=== PATIENT | female | born 1975 | race Caucasian/White ===

== ENCOUNTER → 2023-06-17 06:19 | Day surgery (SDC) | payer OTHER, SELFPAY | LOC: GI 06:19 | PROVIDERS: ATTENDING PHYSICIAN Internal Medicine Gastroenterology | DX: Z12.11 Encounter for screening for malignant neoplasm of colon (principal); D12.2 Benign neoplasm of ascending colon; D12.5 Benign neoplasm of sigmoid colon; K57.30 Diverticulosis of large intestine without perforation or abscess without bleeding; K62.89 Other specified diseases of anus and rectum; K64.8 Other hemorrhoids | CPT/HCPCS: 45380; 88305 ==

== ENCOUNTER → 2023-07-11 13:52 | Outpatient (REF) | payer OTHER, SELFPAY | LOC: WDC 13:52 | PROVIDERS: ATTENDING PHYSICIAN Obstetrics & Gynecology; FAMILY PHYSICIAN Family Medicine | DX: R92.2 Inconclusive mammogram (principal) | CPT/HCPCS: 76641 ==

== ENCOUNTER → 2024-03-09 12:41 | Outpatient (REF) | payer OTHER, SELFPAY | LOC: WDC 12:41 | PROVIDERS: ATTENDING PHYSICIAN Family Medicine Geriatric Medicine; FAMILY PHYSICIAN Family Medicine | DX: Z12.31 Encounter for screening mammogram for malignant neoplasm of breast (principal); Z85.3 Personal history of malignant neoplasm of breast | CPT/HCPCS: 77063; 77067 ==

== ENCOUNTER → 2024-08-14 12:42 | Outpatient (REF) | payer OTHER, SELFPAY | LOC: WDC 12:42 | PROVIDERS: ATTENDING PHYSICIAN Family Medicine Geriatric Medicine; FAMILY PHYSICIAN Family Medicine | DX: R92.30 Dense breasts, unspecified (principal) | CPT/HCPCS: 76641 ==

== ENCOUNTER 2024-12-16 21:01 | Day surgery (SDC) | payer OTHER, SELFPAY ==
[2024-12-16] VITALS (8 sets, daily range): BP systolic 113–153; BP diastolic 69–102; BMI 28.3; BMI 28.4
[2024-12-16 13:52] LABS: Hematocrit 41.3 % (37.0-47.0); Hemoglobin 13.9 g/dL (12.0-16.0); Mean Corp Hgb Conc. 33.7 g/dL (33.0-37.0); Mean Corpuscular Volume 90.0 fL (81.0-99.0); Nucleated Red Blood Cells % 0 %; Platelet Count 270 10^3/uL (130-400); Red Cell Dist. Width 13.1 % (11.5-14.5)
[2024-12-16 14:04] LABS: ALT (SGPT) 18 U/L (0-35); AST (SGOT) 20 U/L (14-36); Albumin 4.4 g/dl (3.5-5.0); Alkaline Phosphatase 76 U/L (38-126); Blood Urea Nitrogen 13 mg/dl (7-17); Calcium 9.5 mg/dl (8.4-10.2); Carbon Dioxide 30 mmol/L (22-30); Chloride 103 mmol/L (98-107); Glucose 100 mg/dl (70-99); Potassium 3.9 mmol/L (3.5-5.1); Sodium 138 mmol/L (135-145); Total Protein 6.9 g/dl (6.3-8.2); eGFR > 60.00
[2024-12-16 14:15] LABS: Troponin I < 0.012 ng/ml
--- NOTE | 2024-12-16 15:51 | ED.GENMED ---
History of Present Illness
<KARINA Rodriguez - Last Filed: 12/16/24 19:55>
General
Chief Complaint: Chest Pain
Source: patient
Exam Limitations: none
Time Seen by Provider: 12/16/24 14:41
Nursing documentation reviewed up to this point in time: agreed with
History of Present Illness
History of Present Illness:
Patient is a 49-year female with past medical history of left-sided breast cancer /lumpectomy who presents with chest pain for the past 3 nights. She reports that started Saturday night. She felt that it might have been something she ate and
initially felt that it started in her upper abdomen and then radiated to her chest. She still feels a little discomfort in her chest throughout the day but reports for the past 2 nights she has had persistent upper abdominal/chest pain that has
kept her up throughout the night. She is not able to get comfortable. She denies any shortness of breath. Initial symptoms started after eating and she feels that pain seems to worsen after eating.
Past History
<KARINA Rodriguez - Last Filed: 12/16/24 19:55>
Past History
ED Past Medical History: None; Negative NIDDM
Social History
Personal:
Phy Exam
<KARINA Rodriguez - Last Filed: 12/16/24 19:55>
General Physical Exam
General Presentation: no apparent distress
General age: appears stated age
General Skin: warm and dry
General Habitus: normal
General Mental: alert
General Hydration: appears well hydrated
Cardiovascular Exam
Cardiovascular Exam: regular rate/rhythm, no murmur and normal peripheral pulses
Pulmonary Exam
Pulmonary Exam: lungs clear and no respiratory distress
Neurological Exam
Neurological Exam: alert and oriented x3
Musculoskeletal Exam
Musculoskeletal Exam: full ROM
Skin Exam
Skin Exam: normal color and warm/dry
Psychiatric Exam
Psychiatric Exam: normal mood/affect
Scores
<KARINA Rodriguez - Last Filed: 12/16/24 19:55>
Heart Score for Chest Pain Patients
STEMI patient?: Not applicable
Course
<KARINA Rodriguez - Last Filed: 12/16/24 19:55>
Orders/Labs/Results
Orders:
Orders
12/16/24 13:23
Electrocardiogram (*1) Urgent
Reason for Study: Chest Pain
12/16/24 13:24
EKG- Treatment ONCE
12/16/24 13:42
Complete Blood Count/With Diff Urgent
Comprehensive Metabolic Panel Urgent
Lipase Urgent
Comment: ADD ON
Troponin I Urgent
12/16/24 15:13
Chest [CR Chest - 2 Views ] Urgent
Comment:
Reason For Exam: cp
12/16/24 15:53
US Abdomen Complete/Upper Urgent
Comment:
Reason For Exam: upper abd pain
12/16/24 17:20
DDimer [D-Dimer] Urgent
12/16/24 19:53
0.9% Sodium Chloride 1000 ml [Nss] 1,000 ml IV BOLUS
Abnormal Lab Results
12/16/24
13:42
Glucose 100 H mg/dl
(70-99)
12/16/24 13:42
12/16/24 13:42
Vital Signs
Initial and Last Documented VS:
Initial Vital Signs
Temp Pulse Resp BP Pulse Ox
98.5 F 107 20 152/102 98
12/16/24 13:20 12/16/24 13:20 12/16/24 13:20 12/16/24 13:20 12/16/24 13:20
Last Documented Vital Signs
Temp Pulse Resp BP Pulse Ox
98 F 91 16 113/71 99
12/16/24 15:29 12/16/24 15:29 12/16/24 15:29 12/16/24 18:33 12/16/24 18:45
Physical Biochemist consulted with Physician
Physical Biochemist consulted with physician?: Yes
Name of Physician Consulted: DR Solis
<Emily Solis, DO - Last Filed: 12/16/24 19:56>
Orders/Labs/Results
Orders:
Orders
12/16/24 13:23
Electrocardiogram (*1) Urgent
Reason for Study: Chest Pain
12/16/24 13:24
EKG- Treatment ONCE
12/16/24 13:42
Complete Blood Count/With Diff Urgent
Comprehensive Metabolic Panel Urgent
Lipase Urgent
Comment: ADD ON
Troponin I Urgent
12/16/24 15:13
Chest [CR Chest - 2 Views ] Urgent
Comment:
Reason For Exam: cp
12/16/24 15:53
US Abdomen Complete/Upper Urgent
Comment:
Reason For Exam: upper abd pain
12/16/24 17:20
DDimer [D-Dimer] Urgent
12/16/24 19:53
0.9% Sodium Chloride 1000 ml [Nss] 1,000 ml IV BOLUS
Abnormal Lab Results
12/16/24
13:42
Glucose 100 H mg/dl
(70-99)
12/16/24 13:42
12/16/24 13:42
Vital Signs
Initial and Last Documented VS:
Initial Vital Signs
Temp Pulse Resp BP Pulse Ox
98.5 F 107 20 152/102 98
12/16/24 13:20 12/16/24 13:20 12/16/24 13:20 12/16/24 13:20 12/16/24 13:20
Last Documented Vital Signs
Temp Pulse Resp BP Pulse Ox
98 F 91 16 113/71 99
12/16/24 15:29 12/16/24 15:29 12/16/24 15:29 12/16/24 18:33 12/16/24 18:45
<KARINA Rodriguez - Last Filed: 12/16/24 19:55>
MDM/Problems Addressed
Differential Diagnosis Includes:
Not limited to gastritis, acute cholecystitis, less likely ACS less likely PE
MDM/Problems Addressed:
As documented patient is a 49 old female who presented with upper abdominal/chest pain for the past 3 nights. Started 3 days ago worse after eating. No cardiac history patient does have a history of breast cancer and is on estrogen blocking drugs
no shortness of breath D-dimer negative. Ultrasound shows large gallstone in gallbladder neck with diffuse gallbladder sludge and wall thickening suggestive of acute cholecystitis.
Patient afebrile normal white count normal LFTs Case discussed with surgery DR Ruiz who does recommend adm to hospitalist service. Case reviewed ED physician case reviewed with hospitalist on-call
Chronic conditions affecting care:
Breast cancer on estrogen blocking drugs
<KARINA Rodriguez - Last Filed: 12/16/24 19:55>
*Radiology
Radiology exam reviewed: radiology read reviewed
*Pulse Oximetry
SaO2: 99
Oxygen Mode of Delivery: Room air
Patient hypoxic: no
*Critical Care Note
Total Time (30-74mins, 75-104mins- exclusive of procedures): Not Applicable
<KARINA Rodriguez - Last Filed: 12/16/24 19:55>
Patient Management
Discussion with other providers: Baggage Handler (DR Ruiz surg )
ED Attending Note
<KARINA Rodriguez - Last Filed: 12/16/24 19:55>
-
Portions of this chart may have been created with voice recognition software.� Occasional wrong word or��sound alike� substitutions may have occurred due to the inherent limitations of voice recognition software.
<Emily Solis DO - Last Filed: 12/16/24 19:56>
ED Attending Note
Patient seen and examined by attending physician: Yes
I performed the substantive portion of visit, reviewed & personally made and approve the management plan that is documented in note by myself or JOSEPHINE.: Yes
I performed a history and physical exam of patient and discussed management with resident, I reviewed resident's note and agree with documented findings and plan of care.: Yes
ED Attending Note:
49-year-old female with prior history of breast cancer presenting to the emergency department for abdominal pain. Patient reports 3 days of abdominal pain, nausea, worse after eating. Denies fever. No prior history of abdominal surgeries. Vital
signs on arrival initially significant for high blood pressure which improved without intervention.
Patient initially seen by nurse practitioner with appropriate workup including laboratory analysis, and ultrasound imaging. Patient noted to have focal right upper quadrant pain. On my assessment, focal right upper quadrant pain, otherwise
nontoxic, benign cardiac and pulmonary exam. Workup is remarkable for acute cholecystitis. Case discussed with surgery, recommending admission for likely surgical management.
Discharge Plan
Departure
Patient Disposition: Admit
Date of Disposition: 12/16/24
Time of Disposition: 19:51
Admit to: Med/Surg
Admit to doctor: hospitalist
Presentation/result/management discussed w/ accepting MD/DO: Hospitalist
Patient with high blood pressure during this ER visit?: Yes
Condition: Fair
Covid-19: Not Applicable
Discharge Problem:
Acute cholecystitis
Prescriptions:
No Action
ascorbic acid (vitamin C) [Vitamin C] 1,000 MG tablet
1,000 mg PO DAILY
calcium carb-D3-mag ox-zinc ox [Iftikhar Mag Zinc Plus D3] 1 EACH tablet
1 ea PO DAILY
hydrocodone-acetaminophen 1 TABLET tablet
1 tab PO Q4HPRN PRN (Reason: pain >4/10) Qty: 20 0RF
Rx Instructions:
take with daily stool softener
Referrals:
Eduard Ruiz MD [Family Provider, Family Practice]
Interventions
Interventions:
*Risk Screen - Suicide Last Done: 12/16/24 13:20
*General Assessment Last Done: 12/16/24 13:20
*Neglect/Abuse Screening Last Done: 12/16/24 15:30
*ED- Fall Risk Assessment Last Done: 12/16/24 15:30
ED- Cardiac Assessment Last Done: 12/16/24 15:30
Discharge Date and Time
Print Language: TELUGU
[2024-12-16 16:26] LABS: Lipase 107 U/L (23-300)
[2024-12-16 17:38] LABS: D-Dimer 0.31 ug/mlFEU (0.00-0.50)
--- NOTE | 2024-12-16 20:00 | HPS.HSE ---
Addendum entered and electronically signed by Madison Lopez MD 12/16/24 21:06:
This is an addendum to H&P written by Lidya Nixon on 12/16/2024. �Patient seen and examined independently with ARTERIAL EMBALMER.
49-year-old female past medical history of left-sided breast cancer status post lumpectomy presenting with chest pain for the past 3 days. �Pain started in her upper abdomen and then radiated to her chest. �Denies shortness of breath. �Pain started
after eating and worse with eating.
Vital signs normal.
Labs unremarkable
Abdominal ultrasound shows large gallstone in gallbladder neck diffuse gallbladder sludge and wall thickening suggesting acute cholecystitis.
Patient without any symptoms currently. N.p.o., IV fluids,� general surgery recommended no antibiotic.�
Original Note:
Family Physician
-
Family Physician: Eduard Ruiz
Chief Complaint
-
upper abdominal and chest pain
History of Present Illness
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 Patient reports that Saturday evening
she started with diffuse abdominal pain, severe, cramping with associated episode of emesis. Then Saturday she began with chest heaviness that included upper abdomen with mild nausea. She believes symptoms worsened with eating and nothing really
improved symptoms. She denies fever, chills, cough, shortness of breath, constipation, diarrhea or urinary symptoms.
Medical History
Past Medical History
Past Medical History: Reports Other
Additional Past Medical History:
malignant neoplasm of upper-outer quadrant of left female breast
Past Surgical History: Reports Other
Additional Past Surgical History:
left breast bx dh 02/2020
left lumpectomy 03/2020
Social History
Tobacco: Non-smoker
Alcohol: Occasional
Drug: None
Personal: Partner
Living: With Family
Employment: Employed
Family History
Family History: Not pertinent
Allergies / Home Medications
Allergies reflects when Allergies were last updated in [employer].
Home Medications with original date entered in [employer]
Allergy/Medication List:
Allergies
Allergy/AdvReac Type Severity Reaction Status Date / Time
Sulfa (Sulfonamide Allergy Rash Verified 12/16/24 13:21
Antibiotics)
Home Medications
tamoxifen 20 mg tablet 20 mg PO DAILY 12/16/24
Review of Systems
-
History Source: Patient
Constitutional: Denies Fever, Weight Loss or Chills
EENT: Denies Sore Throat
Respiratory: Denies Cough or Trouble Breathing
Cardiac: Reports Chest Pain; Denies Diaphoresis, Palpitations or Syncope
Abdomen/GI: Reports Abdominal Pain, Nausea and Vomiting; Denies Diarrhea, Constipated or Anorexia
: Denies Dysuria, Frequency, Flank Pain, Difficulty Voiding or Urgency
Skin: Denies Rash
Neurological: Denies Dizzy, Headache, Weakness or Numbness
Endocrine: Denies Polyuria or Polydipsia
Physical Exam
Vital Signs
Vital Signs
Temp Pulse Resp BP Pulse Ox
98 F 91 16 113/71 99
12/16/24 15:29 12/16/24 15:29 12/16/24 15:29 12/16/24 18:33 12/16/24 18:45
Physical Exam
General: Well Developed, Well Nourished, No Apparent Distress, Comfortable, Conversant and Obese
HEENT: NormoCephalic, Moist mucous membranes, Atraumatic, Nose Appears Normal and Ears Appear Normal
Respiratory: Clear and Non Labored Respirations; No Wheezes, Rales, Rhonchi or Crackles
Cardiac: S1/S2 and Regular Rhythm; No Murmur, Rub, Gallop or Peripheral Edema
GI: Soft, Non Tender, Non Distended and Normal Bowel Sounds
Rectal: Deferred by Provider
Genito-urinary: Deferred by me
Musculoskeletal: No Clubbing, No Cyanosis and No Edema
Skin: Warm and IV/Catheter Site; No Rash
Neuro: Awake, AO x 3 and Nonfocal/grossly intact
Hematologic/Lymphatic: No Lymphadenopathy
Psych: Calm and Intact Judgment/Insight
Laboratory Results
-
12/16/24 13:42
12/16/24 13:42
Laboratory Results
Total Bilirubin 0.5 mg/dl (0.2-1.3) 12/16/24 13:42
AST 20 U/L (14-36) 12/16/24 13:42
ALT 18 U/L (0-35) 12/16/24 13:42
Alkaline Phosphatase 76 U/L (38-126) 12/16/24 13:42
Troponin I < 0.012 ng/ml 12/16/24 13:42
Lipase Cancelled 12/16/24 15:53
Data Reviewed
-
Diagnostic Radiology: Report Reviewed by me (CXR: Unremarkable exam)
Ultrasound: Report Reviewed by me (Abd: Large gallstone in gallbladder neck with diffuse gallbladder sludge and wall thickening suggesting acute cholecystitis. Clinical and laboratory correlation recommended. Nonvisualization of pancreas.)
Medical Tests (Nuc Med, Echo, EKG etc): Report Reviewed by me (EKG: NORMAL SINUS RHYTHM WITH SINUS ARRHYTHMIA)
Lab Data: Labs Reviewed by me
Impression/Plan
-
IMPRESSION/PLAN:
#upper abdominal pain/chest pain likely 2/2 acute cholecystitis
CXR: Unremarkable exam
Abd US: Large gallstone in gallbladder neck with diffuse gallbladder sludge and wall thickening suggesting acute cholecystitis. Clinical and laboratory correlation recommended.
Nonvisualization of pancreas.
EKG: NORMAL SINUS RHYTHM WITH SINUS ARRHYTHMIA
- Admit to med/surg
- Consult surgery
- hold on antibiotics per surgery
- NPO after midnight for potential surgical intervention
#malignant neoplasm of upper-outer quadrant of left female breast
Code status: full code
DVT prophylaxis: SCDs
[2024-12-16] MEDS: NSS 1000 IV (21:19)
--- NOTE | 2024-12-16 22:15 | PTCARENOTE ---
Pt arrived to the unit @2203. Vital signs stable. She came in with upper abdominal pain radiating to the chest. Abdominal ultrasound showed a gallstone with acute cholecystitis. Plan is for the OR in the am. Care ongoing.
[2024-12-17] VITALS (13 sets, daily range): BP systolic 98–136; BP diastolic 54–83
--- NOTE | 2024-12-17 10:21 | CM ---
Reviewed the chart notes and spoke with the patient at the bedside. Patient expects to go to OR today for lap danny. Patient resides with significant other and son in a two story home with one step to enter. The patient reports no DME or SNF, but
did have VN with ankle surgery. Patient thinks it was [facility]N. The patient confirmed her pharmacy of choice is [facility]. CM continues to be available to patient/family and is monitoring medical plan for needs at discharge.
Plan: Discharge plans will depend on the patient's progress.
--- NOTE | 2024-12-17 10:36 | W.PN.HOSP.TC ---
Today's Communication/Plan
-
Plan for cholecystectomy today
Assessment / Plan
Assessment / Plan
Physical exam:
General: Well Developed, Well Nourished and No Apparent Distress
HEENT: Normocephalic, Atraumatic and Moist Mucous Membranes
Respiratory: Clear to Auscultation; Negative Wheezes, Rales or Rhonchi
Cardiac: Regular Rhythm and S1/S2
GI: Soft, Nontender and Nondistended
Musculoskeletal: No Clubbing, No Cyanosis and No Edema
Neuro: Awake, Alert and Oriented, no deficits
Psych: Calm
A/P:
Symptomatic cholelithiasis versus acute cholecystitis:
Ultrasound of the gallbladder stone and wall thickening
N.p.o.
Surgery consult appreciated
Plan for OR today
History of breast cancer:
Outpatient surveillance
DVT prophylaxis:
Lovenox
CODE STATUS:
Full code
Time spent 35 minutes
Anticipated Discharge: Today
Subjective/Interval History
-
Date of Service: December 17, 2024
No abd pain, no fever
Objective Data
-
Vital Signs:
Vital Signs
Temp Pulse Resp BP Pulse Ox
97.8 F 69 16 136/83 100
12/17/24 07:25 12/17/24 07:25 12/17/24 07:25 12/17/24 07:25 12/17/24 07:25
I&O
12/16/24 12/17/24 12/18/24
06:59 06:59 06:59
Intake Total 700 / 700
Balance 700 / 700
--- NOTE | 2024-12-17 10:46 | CON.GS ---
Addendum entered and electronically signed by Tom Ortega MD 12/17/24 11:13:
Patient seen and examined with surgical RATER ASSOCIATE. Agree with documented consultation with additional details provided here.
HPI: 49-year-old female who has had a 4-day history of persistent right upper quadrant abdominal pain but intermittently exacerbated. Initial episode was more diffuse with nausea and vomiting. It has reoccurred over the past few days predominantly
in the evening and began localizing more towards the epigastrium and right upper quadrant. The nausea has persisted. The vomiting subsided. Similar episodes in the past but less severe so she did not seek evaluation.
AFVSS NAD AAO x 3
ABD: Soft, nondistended, tenderness palpation epigastrium and right upper quadrant. No rebound or guarding.
Ultrasound imaging personally reviewed and interpreted as well as radiologist report. Distended gallbladder, numerous stones/sludge. Wall is measured up to 5 mm in location suggestive of thickening. No biliary ductal dilation.
Laboratory testing reviewed and all within normal limits including LFTs, CBC and lipase
Assessment/plan: 49-year-old female presenting with acute biliary colic versus acute calculous cholecystitis and secondary intractable abdominal pain/nausea.
Reviewed with patient indications for cholecystectomy at hospitalization versus attempted nonoperative management. After discussions regarding risks and benefits patient in agreement to proceed with cholecystectomy.
Laparoscopic cholecystectomy with intraoperative cholangiogram was further reviewed in detail including the operative technique utilizing a diagram and drawing. We discussed alternative treatment options, benefits and risks such as but not limited
to bleeding, infectious and wound related complications, iatrogenic injury to surrounding viscera, bile duct injury, bile leak and postcholecystectomy bowel habit changes. Any of the patient's concerns or questions were fully addressed and informed
consent was obtained.
Patient is on the OR schedule for cholecystectomy today
Original Note:
Consultation
-
Date/Time Consultation Requested: 12/16/242213
Date/Time Consultation Performed: 12/17/24 0315
Requesting Provider: Hussain
Medical History
-
Chief Complaint: abdominal pain
History of Present Illness:
Ms Alvarado is a 49 yo female with a h/o breast cancer s/p lumpectomy on tamoxifen/zoladex who presented with upper abdominal pain which began 4 days ago (Saturday) around 10pm after having a pre-prepared [employer] meal for dinner. Pain eventually resolved
but has returned intermittently since, worse at night. Her initial episode of pain was diffuse and accompanied by nausea and vomiting with subsequent episodes more across the upper abdomen and accompanied by nausea without vomiting. She reports
similar episodes of this pain in the past intermittently but much less severe and shorter in duration. Yesterday, pain persisted and she presented through the ED for evaluation. Currently, symptoms have resolved and she has no tenderness on exam.
Past Medical History
Past Medical History: Cancer (breast tx surgically on tamoxifen/Zoladex)
Past Surgical History: Gynecological (LEEP), Orthopedic (ankle) and Other (left lumpectomy)
Social History
Tobacco: Non-Smoker
Alcohol: Occasional
Family History
Family History: Reviewed & Not Pertinent
Allergies / Home Medications
Allergy/AdvReac Type Severity Reaction Status Date / Time
Sulfa (Sulfonamide Allergy Rash Verified 12/16/24 13:21
Antibiotics)
�Medication �Instructions �Recorded �Confirmed �Type
tamoxifen 20 mg tablet 20 mg PO DAILY Cancer 12/16/24 12/16/24 History
Review of Systems
-
History Source: Patient
All other systems: Negative unless noted
A 10 point review of systems was completed, and was negative except as per HPI.
Physical Exam
Vital Signs
Temp Pulse Resp BP Pulse Ox
97.8 F 69 16 136/83 100
12/17/24 07:25 12/17/24 07:25 12/17/24 07:25 12/17/24 07:25 12/17/24 07:25
12/16/24 12/17/24 12/18/24
06:59 06:59 06:59
Actual Weight 82.27 kg
Body Mass Index (BMI) 28.4
Lab Results
12/16/24 13:42
12/16/24 13:42
WBC 7.0 10^3/uL (4.8-10.8) 12/16/24 13:42
Hgb 13.9 g/dL (12.0-16.0) 12/16/24 13:42
Hct 41.3 % (37.0-47.0) 12/16/24 13:42
Plt Count 270 10^3/uL (130-400) 12/16/24 13:42
Abs Immat Gran (auto) 0.0 10^3/uL (0-0.05) 12/16/24 13:42
Neutrophils % 68.9 % (42.2-75.2) 12/16/24 13:42
Physical Exam
General: Well Developed and Well Nourished
HEENT: Moist Mucous Membranes
Respiratory: Non Labored Respirations
GI: Soft, Non Tender and Non Distended
Skin: Warm and Dry
Neuro: Awake, Alert and AO x 3
Psych: Calm
Data Reviewed
-
Ultrasound: Image Personally Visualized and interpreted, Report Reviewed by me, Discussed with Physician and Discussed with Patient
Labs: Labs Reviewed by me, Discussed with Physician and Discussed with Patient
Old Records: Reviewed
Assessment / Plan
-
Ms Alvarado is a 49 yo female with a h/o breast cancer s/p lumpectomy on tamoxifen/zoladex who presents with recurrent upper abdominal pain x4 days with nausea. Symptoms currently resolved. US imaging reviewed with a gallstone noted in gallbladder
neck with diffuse gallbladder sludge and wall thickening. Suspect recurrent biliary colic vs acute cholecystitis. No leukocytosis present. LFTs WNL. Afebrile, VSS.
Plan:
Keep NPO for OR later today for laparoscopic cholecystectomy
ABX telephoner for OR
Analgesics ordered prn for post op
IVF while NPO with NSS at 80ml/hr
Lovenox and SCDs for VTE ppx
[2024-12-17] MEDS: NSS 1000 IV (11:28)
--- NOTE | 2024-12-17 13:05 | W.SUR.PREOP ---
Pre-Operative Surgical Note
-
I have examined this patient prior to the performance of the scheduled procedure.
The patient's condition is unchanged from the time of the current History and
Physical and the patient is able to undergo the scheduled procedure.
--- NOTE | 2024-12-17 15:36 | W.IMMPOSTOP ---
Addendum entered and electronically signed by Tom Ortega MD 12/17/24 15:47:
#[id number]
Original Note:
Surgical Immed Post Op Note
-
Primary Surgeon: Tom Ortega MD
Assisting Surgeon: Juhi Ramos
Pre-op Diagnosis: Acute calculous cholecystitis
Post-op Diagnosis: Acute calculous cholecystitis
Procedure Performed: Laparoscopic cholecystectomy with intraoperative cholangiogram
Anesthesia Type: GETA +0.25% Marcaine
Specimen / Cultures: Gallbladder/none
Estimated Blood Loss: 6 mL
Complications: None immediate
Operative Findings: Tensely distended gallbladder with wall thickening and edema. No adhesions. Cyst needle decompression. Cystic duct identified with critical view of safety. Intraoperative cholangiogram normal. Cystic duct controlled with
clips. Anterior cystic artery, posterior cystic artery branch and third vascular structure going centrally and inserting in the mid body of the gallbladder posteriorly each individually identified and controlled with clips. Gallbladder removed
intact through epigastric incision site which was enlarged to accommodate large gallstones and distended gallbladder.
Plan: Advance diet as tolerated postoperatively
Okay for discharge when tolerating p.o., ambulating, pain controlled
[2024-12-17] MEDS: ZOFRAN 4 MG IV (16:06)
[2024-12-17] MEDS: DILAUDID 0.5 MG IV (16:08)
[2024-12-17] MEDS: DILAUDID 0.25 MG IV (16:29)
[2024-12-17] MEDS: LOVENOX 40 MG SC (17:21)
--- NOTE | 2024-12-17 17:24 | PTCARENOTE ---
Pt returned to [facility] s/p lap danny. 4 lap sites and 1 poke site IDALMIS with glue. 100% on RA. Bed locked and in lowest position. Care ongoing.
[2024-12-18 03:00] VITALS: BP 157/64
[2024-12-18] MEDS: NSS 1000 IV (04:16)
[2024-12-18 07:25] VITALS: BP 129/79
[2024-12-18 09:14] LABS: Hematocrit 35.8 % (37.0-47.0); Hemoglobin 12.0 g/dL (12.0-16.0); Mean Corp Hgb Conc. 33.5 g/dL (33.0-37.0); Mean Corpuscular Volume 89.3 fL (81.0-99.0); Platelet Count 238 10^3/uL (130-400); Red Cell Dist. Width 13.1 % (11.5-14.5)
[2024-12-18 09:23] LABS: Blood Urea Nitrogen 15 mg/dl (7-17); Calcium 8.2 mg/dl (8.4-10.2); Carbon Dioxide 27 mmol/L (22-30); Chloride 109 mmol/L (98-107); Estimated Creatinine Clearance 110 ml/min; Glucose 93 mg/dl (70-99); Potassium 3.9 mmol/L (3.5-5.1); Sodium 140 mmol/L (135-145); eGFR > 60.00
[2024-12-18] MEDS: TORADOL 10 MG IV (09:24)
--- NOTE | 2024-12-18 10:23 | W.PN.HOSP.TC ---
Today's Communication/Plan
-
Discharge planning today
Assessment / Plan
Assessment / Plan
Physical exam:
General: Well Developed, Well Nourished and No Apparent Distress
HEENT: Normocephalic, Atraumatic and Moist Mucous Membranes
Respiratory: Clear to Auscultation; Negative Wheezes, Rales or Rhonchi
Cardiac: Regular Rhythm and S1/S2
GI: Soft, mild tender and Nondistended. Postop findings
Musculoskeletal: No Clubbing, No Cyanosis and No Edema
Neuro: Awake, Alert and Oriented, no deficits
Psych: Calm
A/P:
Acute cholecystitis:
S/p cholecystectomy
Surgery cleared for discharge today
History of breast cancer:
Outpatient surveillance
DVT prophylaxis:
Lovenox
CODE STATUS:
Full code
Anticipated Discharge: Today
Subjective/Interval History
-
Date of Service: December 18, 2024
No new complaints.
Objective Data
-
Labs:
Laboratory Results
12/18/24
09:01
WBC 7.1
Hgb 12.0
Hct 35.8 L
Plt Count 238
Sodium 140
Potassium 3.9
Chloride 109 H
Carbon Dioxide 27
BUN 15
Creatinine 0.7
Glucose 93
Calcium 8.2 L
Vital Signs:
Vital Signs
Temp Pulse Resp BP Pulse Ox
98.1 F 71 16 129/79 100
12/18/24 07:25 12/18/24 07:25 12/18/24 07:25 12/18/24 07:25 12/18/24 07:25
I&O
12/17/24 12/18/24 12/19/24
06:59 06:59 06:59
Intake Total 700 / 700 2120 / 2120
Balance 2119
--- NOTE | 2024-12-18 10:24 | W.DCSUMMARY ---
Discharge Summary
Discharge Data
Date of Admission: 12/16/24
Date of Discharge: 12/18/24
-
Pending Results: No
Hospital Course
Patient 49 years old female history of breast cancer came into the hospital with abdominal pain and found to have acute cholecystitis. Surgery consulted. Patient was taken to the OR and had laparoscopic cholecystectomy with intraoperative
cholangiogram. Patient did well postop. She did not require antibiotics. She is ambulating and tolerating a diet. Surgery cleared her for discharge. She will be discharged in stable condition today.
Discharge Plan
-
Patient Disposition: Home (Routine Discharge)
Discharge Diagnosis/Procedures: Acute cholecystitis status post laparoscopic cholecystectomy with intraoperative cholangiogram.
Diet: As tolerated
Activity: No strenuous activity
Additional Activity: Do not lift over 20lbs for the next 3 weeks
Bathing Restrictions: OK to Shower
Blood Work: Please PCP to order CBC, BMP within 1 to 2 weeks
Activity Restrictions/Additional Instructions:
[facility] General Surgery
Tom Ortega MD FACS
[facility]
[address], [address]
[place] [address]
[phone]
Post-Operative Instructions for Gallbladder Surgery
The incision sites are sealed with a surgical glue dressing.� It is safe to shower at any time after surgery when the glue is dry.� Let shower water run over the incisions and then pat dry.
Glue dressing typically peels off in 2-3 weeks.
Abdominal/incisional pain and discomfort, shoulder/scapular pain, bloating, and mild nausea, as well as bruising/stiffness and swelling at the incision sites are common after surgery.� If felt to be excessive, notify us.
Please start postoperative pain management using over the counter medications such as Tylenol and Ibuprofen, per instructions on the bottle, as long as there are no medical reasons why you cannot take these medications.
Ice the incisions sites for 20 minutes every hour or so to help with postoperative incisional pain and reduce postoperative surgical site swelling.� Take care NOT to get an ice burn on the skin surface.
A warm heating pad is often helpful to alleviate shoulder/scapular back pains after laparoscopic procedures.� This pain typically dissipates 24-72hrs post op.
Transition to a low fat diet as tolerated after surgery if not experiencing postoperative nausea or significant bloating/distention.� Some fatty food intolerance may occur shortly after surgery (cramps,bloating, nausea,diarrhea with fat intake).
Constipation is common following surgery and postoperative narcotic use.� May use a stool softener such as Colace (100 mg 2x day) to prevent constipation
If no BM 24hrs after surgery, recommend starting daily Miralax
If no BM in 24-48hrs after starting Miralax --> recommend then using a dose of magnesium citrate or milk of magnesia with a Senokot tablet to help alleviate post operative constipation as long as there is no nausea/vomiting and passing gas.
Resume all preoperative medications as directed on the discharge medication reconciliation paper.
Do not drive or drink alcohol for 24 hrs after having anesthesia -OR- while taking narcotic pain medications.
Resume regular daily light activities, such as walking, standing and going up/down stairs as tolerated within 24hrs of surgery.� Please refrain from lifting over 15-20 lbs or strenuous exercise until postoperative follow up visit &/or approximately
3-4 weeks.�
Call the office with a fever above 101� F, nausea with vomiting, severe abdominal pain, yellowing of skin or eyes, spreading redness and drainage from incision sites or with any concerns/questions.
Please call the office to schedule or confirm your postoperative surgical follow-up office visit with Dr. Ortega.
Referrals:
Eduard Ruiz MD [Family Provider, Family Practice] - in less than 1 week
Tom Ortega MD [Active, Surgical] - in two to four weeks
Prescriptions:
New
oxycodone 5 mg Tablet
5 mg PO Q6HPRN PRN (Reason: severe pain) Qty: 14 0RF
Continued
tamoxifen 20 mg Tablet
20 mg PO DAILY
Discharge Orders:
Discharge Patient (As Directed); Ordered 12/18/24
Ordered By: Don Christy
Discharge Date and Time
Print Language: [place]IZ[place]
--- NOTE | 2024-12-18 10:52 | CM ---
CM following re: discharge planning.
Reviewed pt's chart, met with pt.
Pt is POD#1 S/p cholecystectomy, doing well.
Discharge order noted. Pt is aware, expressed her agreement and she stated he sister will transport home.
Pt reports she lives with a boyfriend, has supportive 20 year old son and supportive sister. Pt described herself as independent in all areas [employer], drives, works.
No after care VN needs identified.
D/C plan: home no needs. Sister to transport.
[2024-12-18 11:08] VITALS: BP 140/81
--- NOTE | 2024-12-18 11:12 | W.PN.GS2 ---
Today's Communication / Plan
-
dispo planning
Assessment / Plan
-
49 yo female presenting with acute calculous cholecystitis now POD #1 lap danny with ioc
AFVSS
Tolerating diet
Labs stable
Plan:
Analgesics prn
Diet as tolerated
OOB/Ambulate
Ok for discharge from surgical standpoint. D/C instructions updated
Subjective Data
-
Date of Service: December 18, 2024
Pt seen and examined at bedside with Dr. Ruiz. Denies n/v. Tolerating diet. Incisional soreness, but no severe pain. Voiding well. Passing flatus.
Objective Data
-
Intake and Output
12/17/24 12/18/24 12/19/24
06:59 06:59 06:59
Intake Total 700 / 700 2120 / 2120 640 / 640
Balance 700 / 700 2120 / 2120 640 / 640
Intake:
Oral fluids 480 / 480 480 / 480
IV fluids (Total) 700 / 700 1640 / 1640 160 / 160
Normosol 200 / 200
Other:
Number of approximated MODERATE 3 1
amounts of urine
Vital Signs
Temp Pulse Resp BP Pulse Ox
98.1 F 83 16 140/81 100
12/18/24 11:08 12/18/24 11:08 12/18/24 11:08 12/18/24 11:08 12/18/24 11:08
Lab Results
12/18/24 09:01
12/18/24 09:01
Calcium 8.2 mg/dl (8.4-10.2) L 12/18/24 09:01
Total Bilirubin 0.5 mg/dl (0.2-1.3) 12/16/24 13:42
AST 20 U/L (14-36) 12/16/24 13:42
ALT 18 U/L (0-35) 12/16/24 13:42
Alkaline Phosphatase 76 U/L (38-126) 12/16/24 13:42
Total Protein 6.9 g/dl (6.3-8.2) 12/16/24 13:42
Albumin 4.4 g/dl (3.5-5.0) 12/16/24 13:42
Physical Exam
-
NAD
ABD soft, expected incisional tenderness, nd
Mild ecchymosis to upper incision. glue intact, no erythema
== END 2024-12-18 11:39 | disposition home or self-care (01) ==
LOC: SDS 21:01
PROVIDERS: Emergency Medicine; Hospitalist; Nurse Practitioner; CONSULT PHYSICIAN Surgery; EMERGENCY PHYSICIAN Student in an Organized Health Care Education/Training Program; FAMILY PHYSICIAN Family Medicine
DX: K80.10 Calculus of gallbladder with chronic cholecystitis without obstruction (principal)
CPT/HCPCS: 47563; 71046; 74300; 76000; 76700; 80048; 80053; 83690; 84484; 85025; 85027; 85379; 88304; 93005; 99285; A4300

== ENCOUNTER → 2025-03-10 14:15 | Outpatient (REF) | payer OTHER, SELFPAY | LOC: WDC 14:15 | PROVIDERS: ATTENDING PHYSICIAN Family Medicine Geriatric Medicine; FAMILY PHYSICIAN Family Medicine | DX: Z12.31 Encounter for screening mammogram for malignant neoplasm of breast (principal); Z85.3 Personal history of malignant neoplasm of breast; R92.30 Dense breasts, unspecified | CPT/HCPCS: 77063; 77067 ==